=== PATIENT | male | born 1985 | race Caucasian/White ===

== ENCOUNTER 2022-10-31 03:17 | Emergency (ER) | payer OTHER ==
[2022-10-31 03:27] VITALS: BP 148/94
[2022-10-31] MEDS ORDERED: HYDROcod/ACET 5/325 Prepack 4 PO STA (04:16)
--- NOTE | 2022-10-31 04:18 | ED Physician Documentation ---
PD HPI UPPER EXT INJURY - Stated complaint Stated Complaint: SMASHED LEFT THUMB/PAIN - Chief complaint Chief Complaint: Ext Problem - History obtained from History obtained from: Patient - Additonal information Additional information: The patient comes to the emergency department chief complaint of left thumb pain under the nail after accidentally hitting his thumb with a hammer. The patient states that he has tried icing and elevating at home and he also poked 2 holes in his nail and was able to drain some of the blood out. He states that he awakened from sleep with his thumb throbbing and very painful. The patient denies any injuries. No other complaints at this time. Review of Systems Ten Systems: 10 systems reviewed and negative Constitutional: reports: Reviewed and negative Eyes: reports: Reviewed and negative Ears: reports: Reviewed and negative Nose: reports: Reviewed and negative Throat: reports: Reviewed and negative Cardiac: reports: Reviewed and negative Respiratory: reports: Reviewed and negative GI: reports: Reviewed and negative : reports: Reviewed and negative Skin: reports: Reviewed and negative Musculoskeletal: reports: Extremity pain Neurologic: reports: Reviewed and negative Psychiatric: reports: Reviewed and negative Endocrine: reports: Reviewed and negative Immunocompromised: reports: Reviewed and negative PD PAST MEDICAL HISTORY - Past Surgical History Past Surgical History: Yes Ortho: Other - Present Medications Home Medications: Ambulatory Orders Medication Instructions Recorded Confirmed HYDROcod/ACETAM 5/325 [[place] 5/325] 1 - 2 tablet PO Q6H PRN #14 tablet 10/31/22 - Allergies Allergies/Adverse Reactions: Allergies Allergy/AdvReac Type Severity Reaction Status Date / Time No Known Drug Allergies Allergy Verified 10/31/22 03:27 - Social History Does the pt smoke?: Yes Smoking Status: Current every day smoker Does the pt drink ETOH?: Yes Does the pt have substance abuse?: No - Immunizations Immunizations are current?: Yes Immunizations: TDAP current <10years - POLST Patient has POLST: No PD ED PE NORMAL - Vitals Vital signs reviewed: Yes - General General: Alert and oriented X 3, No acute distress, Well developed/nourished - HEENT HEENT: Atraumatic, EOMI, Moist mucous membranes - Neck Neck: Supple, no meningeal sign - Cardiac Cardiac: Strong equal pulses - Respiratory Respiratory: No respiratory distress - Derm Derm: Warm and dry, Other (Small subungual hematoma left thumb. No deformity. No nail breakage. 2 small punctures are noted in the nail overlying the subungual hematoma. Dried blood is also noted on the nail.) - Extremities Extremities: No deformity - Neuro Neuro: Alert and oriented X 3 - Psych Psych: Normal mood, Normal affect Results - Vitals Vitals: Vital Signs - 24 hr 10/31/22 03:22 Temperature 37 C Heart Rate 70 Respiratory 18 Rate Blood Pressure 148/94 H O2 Saturation 99 Oxygen O2 Source Room air PD Medical Decision Making - ED course Complexity details: reviewed results, re-evaluated patient, considered differential, d/w patient ED course: X-rays were obtained of the patient's left hand and did not show any obvious fracture. The patient was given a Vicodin prepack here in the emergency department, since he is driving home, and was also given a prescription for the same. He declined the offer of digital block. We have discussed symptomatic management at home, as well as the usual indications for return. Departure - Departure Disposition: Home, Self Care Clinical Impression: Crushing injury of thumb, left Qualifiers: Encounter type: initial encounter Qualified Code(s): S67.02XA - Crushing injury of left thumb, initial encounter Subungual hematoma of fingernail Qualifiers: Encounter type: initial encounter Qualified Code(s): S60.10XA - Contusion of unspecified finger with damage to nail, initial encounter Condition: Stable Instructions: ED Crush Injury Finger No Fx, ED Hematoma Subungual Prescriptions: HYDROcod/ACETAM 5/325 [[place] 5/325] 1 - 2 tablet PO Q6H PRN #14 tablet PRN Reason: Pain Comments: Your x-ray does not show any obvious fractures. The worst of the pain will be the first couple days and after that, it will steadily improve. You have been given a prepack of pain medication from the emergency department, and a prescription for the same has been sent to the [facility] pharmacy in [place] electronically. You may also try icing and elevating along with the pain medicine. You may take ibuprofen, as well, with the prescribed medicine for further effect.
--- NOTE | 2022-10-31 08:30 | XRAY Report ---
PROCEDURE: Hand 3 View LT INDICATIONS: crush L thumb TECHNIQUE: 4 views of the hand(s) acquired. COMPARISON: None FINDINGS: Bones: No fractures or dislocations. No suspicious bony lesions. Soft tissues: No suspicious soft tissue calcifications. IMPRESSION: No acute fracture. No osseous lesion. If symptoms and/or clinical suspicion for pathology continue, f urther assessment with repeat plain films, or advanced imaging (e.g., CT, MRI, or bone scan) is recom mended for further assessment. Reviewed by: Ana M Bey MD on 10/31/2022 8:28 AM [facility] Approved by: Ana M Bey MD on 10/31/2022 8:28 AM PST Station ID: [id number]
== END 2022-10-31 04:29 | disposition home or self-care (01) ==
LOC: ED 03:17
DX: S67.02XA Crushing injury of left thumb, initial encounter (principal); W22.8XXA Striking against or struck by other objects, initial encounter; F17.200 Nicotine dependence, unspecified, uncomplicated
CPT/HCPCS: 99282; 99283